=== PATIENT | male | born 1940 | race Caucasian/White ===

== ENCOUNTER 2020-05-01 20:09 | Inpatient (IN) | payer MEDICARE, OTHER ==
[~2020-05-01] VITALS: Ht 180.3 cm; Wt 115.4 kg
[2020-05-01 21:19] LABS: HEMOGLOBIN 11.3 g/dl (13.5-18.0); MEAN CELL VOLUME 94 fl (80.0-100.0); MEAN CORPUSCULAR HEMOGLOBIN 30 pg (27.0-31.0); MEAN CORPUSCULAR HGB CONC 32 g/dl (33.0-37.0); MEAN PLATELET VOLUME 9.8 fl (7.4-10.4); PLATELET COUNT 157 K/mm3 (130-400); RED BLOOD COUNT 3.81 M/mm3 (4.20-5.60); REDCELL DISTRIBUTION WIDTH-CV 12.9 % (11.5-14.5)
[2020-05-01 21:21] LABS: HEMATOCRIT 35.9 % (42.0-52.0)
[2020-05-01 21:25] LABS: COLLECTION METHOD CLEAN CATCH
[2020-05-01 21:32] LABS: ALBUMIN 3.2 gm/dL (3.5-5.0); BILIRUBIN,TOTAL 1.5 mg/dL (0.0-1.0); CREATININE, serum 1.71 (0.66-1.25); POTASSIUM 4.6 mmol/L (3.4-5.0)
[2020-05-01 21:38] LABS: MUCOUS Present /lpf; PH 5 (5-8); SQUAMOUS EPITHELIAL None Seen /hpf; URINE APPEARANCE Hazy; URINE BACTERIA Rare /hpf; URINE BILIRUBIN Negative (NEGATIVE); URINE BLOOD 1+ (NEGATIVE); URINE COLOR Yellow; URINE GLUCOSE Negative (NEGATIVE); URINE KETONE Negative (NEGATIVE); URINE LEUKOCYTE ESTERASE Negative (NEGATIVE); URINE NITRATE Negative (NEGATIVE); URINE PROTEIN(semi-quant) 1+ (NEGATIVE); URINE UROBILINOGEN Negative (NEGATIVE)
[2020-05-01 21:43] LABS: TROPONIN-I 0.027 ng/mL (0.000-0.035)
[2020-05-01 22:00] LABS: BAND 2 % (0-10); EOSINOPHIL 1 % (0-4); LYMPHOCYTE 7 % (20.0-51.0); NEUTROPHILS 82 % (42.0-75.2)
[2020-05-01 22:02] LABS: HYPOCHROMIA 2+; PLATELET ESTIMATE NORMAL (NORMAL)
[2020-05-01 22:04] LABS: ARTERIAL BLD GAS TCO2 CT 26.4; ARTERIAL BLOOD GAS BASE EXCESS -0.8 (-2-2); ARTERIAL BLOOD GAS PCO2 45.7 mmHg (35-45); ARTERIAL BLOOD GAS PO2 86.2 mmHg (80-100); ARTERIAL BLOOD GAS pH 7.36 (7.35-7.45)
[2020-05-01] MEDS ORDERED: CIPRO 500MG TA500 MG PO (22:27)
[2020-05-01] MEDS ORDERED: OXYCONTIN 20MG20 MG PO (22:27)
[2020-05-01] MEDS ORDERED: IFEREX 150150 MG PO (22:27)
[2020-05-01] MEDS ORDERED: LASIX 20MG TABL20 MG PO (22:28)
[2020-05-01] MEDS ORDERED: TENORMIN100 MG PO (22:28)
[2020-05-01] MEDS ORDERED: AMITRIPTYLINE H25 M1 PO (22:29)
[2020-05-01] MEDS ORDERED: INDOCIN50 MG PO (22:29)
[2020-05-01] MEDS ORDERED: NORVASC 5MG5 MG/TAB PO (22:29)
[2020-05-01] MEDS ORDERED: ULORIC80 MG PO (22:29)
[2020-05-01] MEDS ORDERED: PREDNISONE10 MG PO (22:30)
[2020-05-01] MEDS ORDERED: BACTROBAN 22GM22 GM NAS (22:31)
[2020-05-01] MEDS ORDERED: VITAMIN C500 MG PO (22:31)
[2020-05-01] MEDS ORDERED: FOLIC ACID 40400 MCG PO (22:31)
[2020-05-01] MEDS ORDERED: COZAAR100 MG PO (22:32)
[2020-05-02 07:34] VITALS: BP 107/70; PULSE 69; TEMP 97.7
[2020-05-02 08:10] VITALS: BP 103/73; PULSE 67; TEMP 97.8
--- NOTE | 2020-05-02 09:17 | NUR ---
Initial visit; Pocketed Spring Assembler introduced herself and let patient know that [facility] is available. Patient declined.
[2020-05-02] MEDS ORDERED: ULTRAM 50MG TAB50 MG PO (10:37)
[2020-05-02 11:10] VITALS: BP 118/74; PULSE 67; TEMP 99.3
[2020-05-02 15:13] VITALS: BP 137/51; PULSE 81
--- NOTE | 2020-05-02 15:30 | NUR ---
This nurse in room for vital signs. BP AND HR WNL. SPO2 NOTED TO BE 75% WITH NASAL CANULA AT 3L. RN CARING FOR PATIENT NOTIFIED AND THIS NURSE INCREASES O2 TO 5L. SPO2 COMES UP TO 80-85% BUT WILL NOT CONTINUE TO RISE. NURSE CONACTED AGAIN. NON-REBREATHER CONNECTED AT 10L. SPO2 INCREASES TO 99%. O2 DECREAED TO 3L AND SPO2 NOTED TO MAINTAIN AT 95%.
--- NOTE | 2020-05-02 16:21 | NUR ---
Food Product Inspector contacted the patient's Constanza #[phone] to complete initial intake. The patient lives in [place] with Constanza. The patient has two walkers. The patient is mostly independent with ADLs. Constanza assists with socks and shoes. The patient's daughter sometimes asssist with showers as needed. The patient sleeps in a lift chair. The patient has had [facility] in the past but not at this time. The patient's PCP is Dr. Croft in [place] and the patient receives medications from [facility] in [place]. The patient will need post acute rehab. LORA discussed Medicare.gov's list of facilities in the [place] area. LORA faxed referrals to [facility], , [facility], [place], [facility] and to [facility]. LORA Flores contacted facilites regarding referral.
--- NOTE | 2020-05-02 18:38 | NUR ---
Patient resting in bed at this time. Patient has become more alert during the shift today, is still a bit confused, but is no longer as agitated and confused as he was this morning. O2 still at 3L via NC. Patient has not complained of much pain today, administered scheduled medications per order, taking PO well. Call light within reach, bed alarm on.
[2020-05-02 21:18] VITALS: BP 128/40; PULSE 80; TEMP 100.7
--- NOTE | 2020-05-02 23:00 | NUR ---
Pt is doing well. When asked if he was having any pain pt stated that he was. I went to get pt medication for pain and pt stated that he wanted his scheduled medications. I updated the EMAR and called Dr. Cullen to get the pt medications continued. Pt usually takes Oxycotin 20mg in the morning and he takes a [address] Cullen wanted him to have 20mg because of his altered mental status. Pt was very upset. Pt was very upset with me and stated that I was trying to change all his medications. The pt was so mad that he stated that I would have a horribe night if he doesn't get the pain medication that he usually takes. Nehemias, housekeeper cleaning cooking called Dr. Cullen and he agreed to start the pt back on all his scheduled pain medications for night. Pt is currently in bed and has his call light within reach.
[2020-05-02] MEDS ORDERED: OXYCONTIN40 MG PO (23:07)
[2020-05-03] VITALS (7 sets, daily range): BP systolic 110–154; BP diastolic 37–86; PULSE 71–98; TEMP 97.9–99.2
--- NOTE | 2020-05-03 | NUR ---
Pt is currently sleeping in bed. Pt was reminded a couple of times to keep his oxygen on. Pt was helpt to get repostioned in bed. Pt has his call light within reach and his bed is in lowest position.
--- NOTE | 2020-05-03 04:40 | NUR ---
Pt slepping in bed. Pt has his call light within reach. Pt was given fresh water at this time. Pt juarez is in place. Pt urine is dark orange and does have some sediment in the tubing. Pt has been encourged during the shift to try drinking water.
--- NOTE | 2020-05-03 10:16 | NUR ---
Tamia from [facility] reports they have a lot of COVID-19 patients and her team will look at the referral this AM then inform this SW of their decision. It is likely they will not accept. LORA contacted Caitlin Betts and the DON is out until about noon this day so they do not know if the patient is accepted at this time. Vinay from [facility] reports his team is reviewing the patient. The patient's secondary insurance does not cover the stay after day 20. The co-pay will be $176 a day starting at day 21. LORA contacted Nilesh with [facility] and they are still reviewing the referral. LORA contacted [facility] and they are still reviewing the referral. LORA collaborated the above with the patient's nurse and with Constanza.
--- NOTE | 2020-05-03 11:08 | NUR ---
Nilesh [facility] cannot accept the patient.
--- NOTE | 2020-05-03 12:33 | NUR ---
Vinay from [facility] reports they can accept the patient for post acute rehab at discharge. SW staffed with the patient's nurse and she will swab the patient for his COVID-19 test this day. SW contacted the patient's , Constanza to provide an update. She was in agreeance. LORA collaborated the above information with the patient's nurse, with Ladi Cullen' nurse, and Dr. Cullen.
--- NOTE | 2020-05-03 13:00 | NUR ---
THIS NURSE ENTERED THE ROOM TO TAKE THE PATIENTS LUNCH TRAY, ASSESS PAIN LEVEL AND COMPLETE AFTERNOON NEURO CHECKS. PATIENT BECAME BELIGERANT AND ACCUSED THIS NURSE OF ASSUMING HE IS A DOPE ADDICT. PATIENT REPORTING HIS PAIN A 8-9/10 AND IS WANTING PAIN MEDICATION NOW. ONLY PRN PAIN MEDICATION ON CHART AT THIS TIME IS TYLENOL, PATIENT REFUSING TYLENOL. DR. HAMMER CALLED AND NOTIFIED. DR. HAMMER CONTACTING NURSING PRIZE FIGHTER FOR A RAPID COVID SWAB AND CIGAR MAKING SUPERVISOR TO TRY AND GET THE PATIENT TRANSFERRED TODAY. DR. HAMMER REQUESTED THAT THIS NURSE CONTACT FAUSTINA MALONE IN REGARDS TO PAIN MEDICATION. KIRA LOOKING INTO PAIN MEDICATION OPTIONS. THIS NURSE WAITING TO HEAR [facility] ON MEDICATION AND COVID SWAB COLLECTION.
--- NOTE | 2020-05-03 13:48 | NUR ---
PATIENT OFFERED ONE TIME DOSE OF NORCO FOR HIS PAIN THAT HE'S RATING A 8-9/10 IN HIS KNEE. PATIENT REFUSED. PATIENT STATES THAT HE WANTS HIS MEDICATIONS THAT HE HAS IN THE PHARMACY. PATIENT EDUCATED THAT HE IS NOT ABLE TO TAKE HIS HOME MEDICATIONS. PRN NORCO OFFERED A SECOND TIME. PATIENT REFUSED.
--- NOTE | 2020-05-03 16:54 | NUR ---
FAUSTINA MALONE CALLED AND NOTIFIED THAT THE PATIENT PULLED OUT HIS IV THIS AFTERNOON BEFORE THE PATIENT WAS COVID SAWBBED. PATIENT IS ON TELEMETRY AND RECEIVING IV FLUIDS. TORB TO DISCONTINUE IV FLUIDS, AND NO NEW IV IS NEEDED FROM FAUSTINA MALONE TO THIS NURSE. PATIENT ADDITIONALLY REFUSED TO TAKE THE ONE TIME DOSE OF NORCO ORDERED FOR HIM THIS AFTERNOON AND DEMANDED TO HAVE HIS MEDICATIONS FROM THE PHARMACY. CONTINUE REDDY UNTIL TOMORROW PER FAUSTINA MALONE.
--- NOTE | 2020-05-03 20:00 | NUR ---
Pt is currently eating ice cream and sitting up in bed. Pt did want to speak to me at the beginning of the shift to make sure that he got the correct medications at night. Pt was informed that he would received his regular scheduled medications tonight. He had seveal questions about his medications and stated that he thought it was crazy how we don't give him what he takes at home. Pt wanted to make a copy of his home medications and put them on his chart and this was done at this time. Pt has his call light within reach.
[2020-05-04] VITALS (7 sets, daily range): BP systolic 123–168; BP diastolic 53–76; PULSE 65–81; TEMP 97.5–99
--- NOTE | 2020-05-04 11:00 | NUR ---
Patient has been upset about things that happened on previous shifts. He keeps talking about his medications. We went through his medications again and they are correct according to his list. He was upset about not having his brace on his leg before PT came to work with him. Explained that the brace is for night time when he's sleeping. Patient verbalized understanding. He is also upset about PT has not been in yet and he thinks its getting too late. Explained they will be in, it will be after lunch. No other changes at this time. Call light within reach.
--- NOTE | 2020-05-04 18:30 | NUR ---
Patient is doing better this afternoon. His catheter has been discontinued. He has been able to void. His pain is better controlled this afternoon. He stated he was taking roxicodone before being admitted her. It has been ordered by Dr Cullen. No other changes at this time. Call light within reach.
[2020-05-05 04:43] VITALS: BP 131/56; PULSE 64; TEMP 97.8
--- NOTE | 2020-05-05 06:28 | NUR ---
RESTING QUIETLY. PT ABLE TO LIFT LEG IN BED. DRESSING CD&I. NO N/V. OXYCONTIN FOR PAIN.
--- NOTE | 2020-05-05 07:56 | NUR ---
Patient at the end of shift 05/04/20 stated that he had been voiding all day. This am he asked help with using the urinal and stated he has never used one. I asked if he had voided since the catheter came out. He stated no but he thought since he had so much out with the catheter his bladder was empty. Call Dr Cullen for an order to catherize patient. Straight catherized patient and got back 1200ml of samuel colored urine. While catherizing patient he stated he had to have this done before surgery. He stated they told him that he is not emptying his bladder. We also got him up to the [facility] and he was able to have a bowel movement. He is having increased pain, denies nausea. He is not safe with his transfers. He needs a lot of reminders and cues to use his walker properly. No other changes at this time. Call light within reach.
[2020-05-05 08:30] VITALS: BP 177/56; PULSE 75; TEMP 98.2
[2020-05-05] MEDS ORDERED: COLACE 100100 MG/CAP PO (11:03)
[2020-05-05] MEDS ORDERED: DULCOLAX TAB5 MG PO (11:03)
[2020-05-05 11:04] VITALS: BP 177/56; PULSE 75; TEMP 98.2
[2020-05-05] MEDS ORDERED: OXYCONTIN 20MG20 MG PO (11:04)
[2020-05-05] MEDS ORDERED: ROXICODONE 55 MG/TAB PO (11:05)
[2020-05-05] MEDS ORDERED: OXYCONTIN40 MG PO (11:05)
--- NOTE | 2020-05-05 11:37 | NUR ---
Note from 05/04/2020- SW received a call from hospitalist inquiring about discharing patient. [facility] continued to wait for COVID test, that was not ready yet. Patients nurse had originally informed SW that it could take 3-5 days for test results to be available. At approximately 330 patients nurse called Sw to inform me that COVID test came back negative, and that patient would be able to be released after the provider completes a review. 05/05/2020- patients nurse contacted this SW and informed her that patient was ready for discharge and to comform pick up and delivery driver time, she perferred 1 o'clock this afternoon. LORA faxed over discharge forms and called Asutin at [facility] to arrange for transport at 1 as directed. SW contacted surgical staff to confirm pick up and delivery driver time for patient. LORA did call patients Constanza to inform her of discharge and pick up and delivery driver time. Constanza had questions about her husbands medical status. LORA informed her that I would ask nursing staff to contact her. LORA did speak to patients nurse who would be calling her.
[2020-05-05 12:20] VITALS: BP 120/87; PULSE 68; TEMP 98.1
--- NOTE | 2020-05-05 14:00 | NUR ---
Patient has been discharged to [facility]. Report called to Joan CAMPBELL. Info packet sent with patient. All belongings packed up and sent with patient. His home medications were sent with him. His is aware he is being transferred.
[2020-05-12] MEDS ORDERED: FLOMAX 0.40.4 MG/CAP PO (05:09)
[2020-05-12] MEDS ORDERED: ZOFRAN 4MG T4 MG/TAB PO (10:15)
[2020-05-12] MEDS ORDERED: TYLENOL 325MG325 MG PO (10:16)
[2020-05-12] MEDS ORDERED: ROBITUSSIN A-C S1 M1 PO (10:17)
[2020-05-12] MEDS ORDERED: NYSTATIN OR100 MU/ML PO (10:18)
[2020-05-12] MEDS ORDERED: IFEREX 150150 MG PO (10:29)
[2020-05-21] MEDS ORDERED: NORVASC 10MG10 MG PO (10:47)
[2020-05-21] MEDS ORDERED: PROTONIX 40MG T40 MG PO (10:51)
[2020-05-21] MEDS ORDERED: XANAX .25M0.25 MG/TA PO (10:52)
== END 2020-05-05 13:30 | DRG 690 ==
LOC: COL.ER 20:09 → SURG 22:41
PROVIDERS: Family Medicine; ADMIT Internal Medicine Nephrology
DX: N39.0 Urinary tract infection, site not specified (principal); R40.1 Stupor; G89.29 Other chronic pain; I95.2 Hypotension due to drugs; B96.20 Unspecified Escherichia coli [E. coli] as the cause of diseases classified elsewhere; Z86.14 Personal history of Methicillin resistant Staphylococcus aureus infection; K75.4 Autoimmune hepatitis; Z96.643 Presence of artificial hip joint, bilateral; K59.00 Constipation, unspecified; Z20.828 Contact with and (suspected) exposure to other viral communicable diseases; M19.90 Unspecified osteoarthritis, unspecified site; Z90.49 Acquired absence of other specified parts of digestive tract
CPT/HCPCS: J2270; J7030; J7512; L1830

== ENCOUNTER → 2020-05-06 | Outpatient (CLI) | payer MEDICARE, OTHER ==
[~2020-05-06] MED LIST: AMITRIPTYLINE H25 M1 PO; BACTROBAN 22GM22 GM NAS; CIPRO 500MG TA500 MG PO; COLACE 100100 MG/CAP PO; COZAAR100 MG PO; DULCOLAX TAB5 MG PO; FOLIC ACID 40400 MCG PO; IFEREX 150150 MG PO; INDOCIN50 MG PO; LASIX 20MG TABL20 MG PO; NORVASC 5MG5 MG/TAB PO; OXYCONTIN 20MG20 MG PO; OXYCONTIN40 MG PO; PREDNISONE10 MG PO; ROXICODONE 55 MG/TAB PO; TENORMIN100 MG PO; ULORIC80 MG PO; ULTRAM 50MG TAB50 MG PO; VITAMIN C500 MG PO
[2020-05-06 18:23] LABS: COLLECTION METHOD CATHETER
[2020-05-06 18:36] LABS: MUCOUS Present /lpf; PH 5 (5-8); SQUAMOUS EPITHELIAL 0-2 /hpf; URINE APPEARANCE Clear; URINE BACTERIA Rare /hpf; URINE BILIRUBIN Negative (NEGATIVE); URINE BLOOD Negative (NEGATIVE); URINE COLOR Yellow; URINE GLUCOSE Negative (NEGATIVE); URINE KETONE Negative (NEGATIVE); URINE LEUKOCYTE ESTERASE Negative (NEGATIVE); URINE NITRATE Negative (NEGATIVE); URINE PROTEIN(semi-quant) Negative (NEGATIVE); URINE RBC 0-2 /hpf; URINE UROBILINOGEN Negative (NEGATIVE)
== END ==
LOC: ZCOL.LAB 17:52
PROVIDERS: Family Medicine
DX: N39.0 Urinary tract infection, site not specified (principal)

== ENCOUNTER → 2020-05-10 | Outpatient (CLI) | payer MEDICARE, OTHER ==
[~2020-05-10] MED LIST changes: +FLOMAX 0.40.4 MG/CAP PO; +NYSTATIN OR100 MU/ML PO; +ROBITUSSIN A-C S1 M1 PO; +TYLENOL 325MG325 MG PO; +ZOFRAN 4MG T4 MG/TAB PO
[2020-05-10 02:04] LABS: COLLECTION METHOD CATHETER
[2020-05-10 02:07] LABS: BASO % 0.4 % (0.0-2.0); EOS # 0.1 (0.0-0.7); EOS % 0.9 % (0-4.0); GRAN # 6.2 (1.4-6.5); GRAN % 62.3 % (42.2-75.2); HEMOGLOBIN 11.3 g/dl (13.5-18.0); LYMPH # 2.2 (1.2-3.4); LYMPH % 21.5 % (20.0-51.0); MEAN CELL VOLUME 95 fl (80.0-100.0); MEAN CORPUSCULAR HEMOGLOBIN 30 pg (27.0-31.0); MEAN CORPUSCULAR HGB CONC 31 g/dl (33.0-37.0); MEAN PLATELET VOLUME 10.1 fl (7.4-10.4); MONO # 1.4 (0.1-0.6); MONO % 13.5 % (1.7-9.3); PLATELET COUNT 254 K/mm3 (130-400); RED BLOOD COUNT 3.81 M/mm3 (4.20-5.60); REDCELL DISTRIBUTION WIDTH-CV 13.7 % (11.5-14.5)
[2020-05-10 02:13] LABS: ALBUMIN 3.2 gm/dL (3.5-5.0); BILIRUBIN,TOTAL 0.7 mg/dL (0.0-1.0); CALCIUM 8.7 mg/dL (8.4-10.2); CREATININE, serum 1.48 (0.66-1.25); POTASSIUM 4.2 mmol/L (3.4-5.0); TOTAL PROTEIN 6.2 gm/dL (6.4-8.2)
[2020-05-10 02:16] LABS: MUCOUS Present /lpf; PH 5 (5-8); SQUAMOUS EPITHELIAL None Seen /hpf; URINE APPEARANCE Hazy; URINE BACTERIA Occasional /hpf; URINE BILIRUBIN Negative (NEGATIVE); URINE BLOOD 2+ (NEGATIVE); URINE COLOR Yellow; URINE GLUCOSE Negative (NEGATIVE); URINE KETONE 1+ (NEGATIVE); URINE LEUKOCYTE ESTERASE 2+ (NEGATIVE); URINE NITRATE Negative (NEGATIVE); URINE PROTEIN(semi-quant) 1+ (NEGATIVE); URINE UROBILINOGEN Negative (NEGATIVE); URINE WBC >50 /hpf
== END ==
LOC: ZCOL.LAB 01:11
DX: R33.9 Retention of urine, unspecified (principal); R50.9 Fever, unspecified

== ENCOUNTER 2020-05-29 16:00 | Emergency (ER) | payer MEDICARE, OTHER ==
[~2020-05-29] VITALS: Ht 182.9 cm; Wt 104.5 kg
[~2020-05-29 16:00] MED LIST changes: +NORVASC 10MG10 MG PO; +PROTONIX 40MG T40 MG PO; +XANAX .25M0.25 MG/TA PO
[2020-05-29 16:54] LABS: BASO # 0.1 (0.0-0.2); BASO % 0.6 % (0.0-2.0); EOS # 0.3 (0.0-0.7); EOS % 2.1 % (0-4.0); GRAN # 9.3 (1.4-6.5); GRAN % 73.9 % (42.2-75.2); HEMOGLOBIN 10.2 g/dl (13.5-18.0); LYMPH # 1.4 (1.2-3.4); LYMPH % 10.8 % (20.0-51.0); MEAN CELL VOLUME 93 fl (80.0-100.0); MEAN CORPUSCULAR HEMOGLOBIN 29 pg (27.0-31.0); MEAN CORPUSCULAR HGB CONC 31 g/dl (33.0-37.0); MONO # 1.5 (0.1-0.6); MONO % 11.5 % (1.7-9.3); PLATELET COUNT 191 K/mm3 (130-400); RED BLOOD COUNT 3.51 M/mm3 (4.20-5.60)
[2020-05-29 16:55] LABS: INR 1.6 (0.8-3.0); PROTHROMBIN TIME 18.4 SECONDS (9.7-12.8)
[2020-05-29 16:58] LABS: HEMATOCRIT 32.6 % (42.0-52.0)
[2020-05-29 17:00] LABS: ALANINE AMINOTRANSFERASE 28 U/L (4-49); ALBUMIN 2.7 gm/dL (3.5-5.0); ALKALINE PHOSPHATASE 83 U/L (50-136); ANION GAP 7 mmol/L (7-16); AST,SGOT 33 U/L (15-37); BILIRUBIN,TOTAL 0.6 mg/dL (0.0-1.0); BLOOD UREA NITROGEN 50 mg/dL (9-20); CALCIUM 8.8 mg/dL (8.4-10.2); CARBON DIOXIDE 22 mmol/L (22-30); CHLORIDE 112 mmol/L (98-107); CREATININE, serum 1.95 (0.66-1.25); GLUCOSE 105 mg/dL (74-106); POTASSIUM 4.9 mmol/L (3.4-5.0); SODIUM 142 mmol/L (137-145); TOTAL PROTEIN 6.2 gm/dL (6.4-8.2)
[2020-05-29 17:10] LABS: TROPONIN-I < 0.012 ng/mL (0.000-0.035)
[2020-05-29 18:30] VITALS: BP 112/74; PULSE 68; TEMP 97.6
== END 2020-05-29 18:43 | disposition home or self-care (01) ==
LOC: COL.ER 16:00
PROVIDERS: Nurse Practitioner Primary Care
DX: R07.9 Chest pain, unspecified (principal); R06.00 Dyspnea, unspecified; I10 Essential (primary) hypertension; G89.29 Other chronic pain; Z86.718 Personal history of other venous thrombosis and embolism; Z88.0 Allergy status to penicillin
CPT/HCPCS: J0696; J7030

== ENCOUNTER → 2020-05-30 | Outpatient (REF) ==
[2020-05-30 02:54] LABS: COLLECTION METHOD CATHETER
[2020-05-30 03:13] LABS: HYALINE CAST >12 /lpf; PH 5 (5-8); SQUAMOUS EPITHELIAL None Seen /hpf; URINE APPEARANCE Clear; URINE BACTERIA None Seen /hpf; URINE BILIRUBIN Negative (NEGATIVE); URINE BLOOD Negative (NEGATIVE); URINE COLOR Yellow; URINE GLUCOSE Negative (NEGATIVE); URINE KETONE Negative (NEGATIVE); URINE LEUKOCYTE ESTERASE Negative (NEGATIVE); URINE NITRATE Negative (NEGATIVE); URINE PROTEIN(semi-quant) Negative (NEGATIVE); URINE RBC 0-2 /hpf; URINE UROBILINOGEN Negative (NEGATIVE)
== END ==
LOC: ZLAB.STJ 02:53
DX: N39.0 Urinary tract infection, site not specified (principal)